=== PATIENT | male | born 1960 | race African-American/Black ===

== ENCOUNTER 2022-09-25 02:14 | Inpatient (IN) | payer MEDICAID, OTHER ==
[~2022-09-25] VITALS: Ht 182.9 cm; Wt 77.6 kg
[~2022-09-25 02:14] MED LIST: NO MEDS
[2022-09-25] MEDS ORDERED: ASPIRIN 81MG TABLET PO ONE (02:45)
[2022-09-25] MEDS ORDERED: PROPOFOL 10MG/ML 100ML 100 ML IV PRN (03:15)
[2022-09-25 04:03] LABS: BASOPHILS % 1.2 % (0.0-2.0); EOSINOPHILS % 8.4 % (0.0-5.0); HEMATOCRIT. 39.1 % (42.0-52.0); HEMOGLOBIN. 13.4 g/dL (14.0-18.0); LYMPHOCYTES % 27.6 % (20.0-50.0); MEAN CORPUSCULAR HEMOGLOBIN 30.9 pg (28.0-32.0); MEAN PLATELET VOLUME 7.8 fl (7.4-10.4); MONOCYTES % 9.5 % (2.0-8.0); NEUTROPHILS % 53.3 % (40.0-76.0); PLATELET 245 x1000/uL (130-400); RED BLOOD CELL COUNT 4.34 mill/uL (4.7-6.1); RED CELL DISTRIBUTION WIDTH 14.1 % (11.6-14.6)
[2022-09-25 04:09] LABS: CHLORIDE 109 mEq/L (98-107)
[2022-09-25] MEDS ORDERED: ACETAMINOPHEN 325MG TABLET PO PRN (07:45)
[2022-09-25] MEDS ORDERED: IPRATROPIUM/ALBUTEROL 0.5-3(2.5)MG/3ML NEB HHN PRN (07:45)
[2022-09-25] MEDS ORDERED: LORAZEPAM 0.5MG TABLET PO PRN (07:45)
[2022-09-25] MEDS ORDERED: DOCUSATE SODIUM 100MG CAPSULE PO PRN (07:45)
[2022-09-25] MEDS ORDERED: CLONIDINE 0.1MG TABLET PO PRN (07:45)
[2022-09-25] MEDS ORDERED: GUAIFENESIN 200MG/10ML SUGAR FREE UDC PO PRN (07:45)
[2022-09-25] MEDS ORDERED: ONDANSETRON HCL 4MG/2ML INJ IV PRN (07:45)
[2022-09-25] MEDS ORDERED: MAGNESIUM/ALUMINUM HYDROXIDE/SIMETHICONE 30ML UDC PO PRN (07:45)
[2022-09-25 10:00] VITALS: BP 127/69
[2022-09-25] MEDS ORDERED: NITROGLYCERIN 0.4MG TABLET SL SL PRN (10:15)
[2022-09-25] MEDS: ENOXAPARIN 40MG/0.4ML SYR SUBCUT SCH (12:11)
[2022-09-25] MEDS: PANTOPRAZOLE 40MG DR TABLET PO SCH (12:11)
[2022-09-25 12:13] VITALS: BP 125/82
[2022-09-25 12:17] VITALS: BP 125/82
[2022-09-25 15:16] VITALS: BP 126/77
[2022-09-25 18:00] LABS: D-DIMER 0.54 mg/L FEU (<0.50); INR 1.1; PROTHROMBIN TIME 11.4 sec (9.6-11.0)
[2022-09-25 18:09] LABS: PHOSPHORUS 2.9 mg/dL (2.5-4.9)
[2022-09-25 18:10] LABS: CREATINE KINASE MB FRACTION 3.5 ng/mL (0.5-3.6)
[2022-09-25 18:18] LABS: T4 FREE 0.93 ng/dL (0.76-1.46)
[2022-09-25 18:33] LABS: FOLIC ACID (FOLATE) SERUM 7.5 ng/mL (>5.38)
[2022-09-25 20:00] VITALS: BP 125/77
[2022-09-25 21:46] LABS: CREATINE KINASE MB FRACTION 3.1 ng/mL (0.5-3.6)
[2022-09-26] VITALS (8 sets, daily range): BP systolic 111–138; BP diastolic 62–85
[2022-09-26 00:21] LABS: CLARITY URINE CLEAR (CLEAR); COLOR URINE YELLOW (YELLOW); KETONES URINE NEGATIVE (NEGATIVE); LEUKOCYTE ESTERASE URINE NEGATIVE (NEGATIVE); NITRITE URINE NEGATIVE (NEGATIVE); OCCULT BLOOD URINE TRACE (NEGATIVE); PROTEIN URINE NEGATIVE (NEGATIVE); SPECIFIC GRAVITY URINE 1.015 (1.005-1.030); UROBILINOGEN URINE 0.2 E.U./dL (0.2-1.0)
[2022-09-26 00:58] LABS: *AMPHETAMINES SCREEN URINE NEGATIVE (NEGATIVE); *BARBITURATES SCREEN URINE NEGATIVE (NEGATIVE); *BENZODIAZEPINES SCREEN URINE NEGATIVE (NEGATIVE); *COCAINE SCREEN URINE PRESUMTIVE POSITIVE (NEGATIVE); CANNABINOID URINE SCREEN NEGATIVE (NEGATIVE); METHADONE URINE SCREEN NEGATIVE (NEGATIVE); OPIATES URINE SCREEN NEGATIVE (NEGATIVE); PHENCYCLIDINE URINE SCREEN NEGATIVE (NEGATIVE)
[2022-09-26 02:57] LABS: CREATINE KINASE MB FRACTION 2.2 ng/mL (0.5-3.6)
[2022-09-26] MEDS: PANTOPRAZOLE 40MG DR TABLET PO SCH (06:21)
[2022-09-26] MEDS ORDERED: VERAPAMIL HCL 2.5 MG/1 ML 2ML VIAL IV ONE (07:59)
[2022-09-26] MEDS ORDERED: IODIXANOL 320MG/ML 100 ML BOTTLE IV ONE (07:59)
[2022-09-26] MEDS ORDERED: LIDOCAINE HCL/PF 1% 10 MG/ML 5ML VIAL ONE (07:59)
[2022-09-26] MEDS ORDERED: DIPHENHYDRAMINE 50MG/ML VIAL ONE (07:59)
[2022-09-26] MEDS ORDERED: HEPARIN 1000 UNITS/ML 10ML ONE (07:59)
[2022-09-26] MEDS: ENOXAPARIN 40MG/0.4ML SYR SUBCUT SCH (08:00)
[2022-09-26] MEDS ORDERED: NITROGLYCERIN 50MCG/ML 10ML VIAL (CATH LAB) IV ONE (08:00)
[2022-09-26] MEDS ORDERED: NICARDIPINE 100MCG/ML 10ML VIAL (CATH LAB) IV ONE (08:00)
[2022-09-26] MEDS ORDERED: FENTANYL CITRATE/PF 50MCG/ML 2ML VIAL ONE (08:20)
[2022-09-26] MEDS ORDERED: MIDAZOLAM HCL 2 MG/2 ML VIAL ONE (08:20)
[2022-09-26 08:24] LABS: CHLORIDE 112 mEq/L (98-107)
[2022-09-26] MEDS ORDERED: ACETAMINOPHEN 325MG TABLET PO PRN (09:45)
[2022-09-26] MEDS ORDERED: SODIUM CHLORIDE 0.45% 500 ML IV SCH (09:45)
[2022-09-26] MEDS ORDERED: ATROPINE SULFATE 1MG/10ML SYR IV PRN (09:45)
[2022-09-26] MEDS ORDERED: SODIUM CHLORIDE 0.45% 500 ML IV ONE (10:00)
[2022-09-26] MEDS ORDERED: ATOR40TA70 PO (10:33)
[2022-09-26] MEDS ORDERED: ASPI-1497 PO (10:33)
[2022-09-26] MEDS ORDERED: ISOS30TA91 PO (10:47)
[2022-09-26] MEDS ORDERED: ISOSORBIDE MONONITRATE 30MG TABLET SR 24HR PO SCH (11:00)
== END 2022-09-26 15:22 | disposition home or self-care (01) | DRG 191 ==
LOC: ER 02:14 → MICUSO 04:58 → 3WST 08:00
PROVIDERS: ADMIT Internal Medicine; ATTEND Internal Medicine
PROC: 4A023N7 Measurement of Cardiac Sampling and Pressure, Left Heart, Percutaneous Approach (ICD-10-PCS; principal; 2022-09-26)
PROC: B211YZZ Fluoroscopy of Multiple Coronary Arteries using Other Contrast (ICD-10-PCS; 2022-09-26)
DX: I25.119 Atherosclerotic heart disease of native coronary artery with unspecified angina pectoris (principal); I50.21 Acute systolic (congestive) heart failure; F17.210 Nicotine dependence, cigarettes, uncomplicated; I11.0 Hypertensive heart disease with heart failure; K21.9 Gastro-esophageal reflux disease without esophagitis; K25.9 Gastric ulcer, unspecified as acute or chronic, without hemorrhage or perforation; G43.909 Migraine, unspecified, not intractable, without status migrainosus; Z20.822 Contact with and (suspected) exposure to COVID-19; Z82.49 Family history of ischemic heart disease and other diseases of the circulatory system; Z87.11 Personal history of peptic ulcer disease; Z88.0 Allergy status to penicillin; Z79.899 Other long term (current) drug therapy; Z79.82 Long term (current) use of aspirin
CPT/HCPCS: 36415; 71045; 80048; 80053; 80305; 81003; 82550; 82553; 82607; 82746; 83540; 83550; 83735; 83880; 84100; 84439; 84443; 84484; 85025; 85379; 85651; 87426; 93005; 93306; 93458; 99285; C1769; C1887; C1893; J1200; J1644; J1650; J2250; J3010; J3490; Q9967